=== PATIENT | male | born 1980 | race Hispanic/Latino ===

== ENCOUNTER 2017-11-28 08:48 | Emergency (ER) | payer OTHER ==
[~2017-11-28] VITALS: Ht 162.6 cm; Wt 74.5 kg
[~2017-11-28 08:48] MED LIST: LOPRESSOR25 MG PO; SYMBICORT60 INHALAT IH; XANAX0.5 MG PO
[2017-11-28 09:31] LABS: HEMATOCRIT 45.9 % (38.0-50.0); HEMOGLOBIN 15.5 G/DL (12.5-16.6); MCH 31.1 PG (29.0-34.0); MCHC 33.8 G/DL (30.0-36.0); PLATELET COUNT 213 K/uL (156-360); RBC DIS.WIDTH-CV 12.7 % (11.8-14.6); RBC DIS.WIDTH-SD 42.9 % (39-53); RED BLOOD COUNT 4.99 M/uL (4.00-5.50)
[2017-11-28 09:39] LABS: CHLORIDE 106 mEq/L (99-109); POTASSIUM 4.4 mEq/L (3.7-5.4)
[2017-11-28 09:40] LABS: SODIUM 141 mEq/L (136-147)
[2017-11-28 09:41] LABS: GLUCOSE 91 mg/dL (70-99)
[2017-11-28 09:45] LABS: CREATININE 0.8 mg/dL (0.6-1.3); GFR ESTIMATE (CALCULATED) > 59 mL/min/ (58.99-99999)
[2017-11-28 09:46] LABS: UREA NITROGEN (BUN) 15 mg/dL (9-23)
[2017-11-28 10:18] VITALS: BP 132/88
== END 2017-11-28 10:19 | disposition home or self-care (01) ==
LOC: EME 08:48
DX: J45.901 Unspecified asthma with (acute) exacerbation (principal); Z87.891 Personal history of nicotine dependence
CPT/HCPCS: 71046; 80048; 85027; 99281; 99283